=== PATIENT | female | born 1980 ===

== ENCOUNTER 2017-04-13 20:54 | Emergency (ER) | payer BC ==
[2017-04-13 20:54] VITALS: BMI 18.8
[2017-04-13 21:08] VITALS: RESP 20; O2SAT 99
[2017-04-13] MEDS ORDERED: Sodium Chloride 0.9% 1,000 ML IV ONE (22:00)
[2017-04-13 22:10] LABS: BASO % 0.1 % (0.0-2.0); EOS % 0.3 % (0.0-4.0); HEMATOCRIT 43.3 % (34.0-47.0); LYMPH # 0.5 K/uL (1.0-4.3); LYMPH % 4.1 % (20.0-40.0); MEAN CORPUSCULAR HGB CONC 32.6 g/dL (33.0-37.0); MEAN PLATELET VOLUME 10.4 fL (7.2-11.7); MONO # 0.9 K/uL (0.0-0.8); MONO % 7.1 % (0.0-10.0); PLATELET COUNT 210 K/uL (130-400); RED CELL DISTRIBUTION WIDTH 13.4 % (11.5-14.5); WHITE BLOOD COUNT 12.3 K/uL (4.8-10.8)
[2017-04-13 22:19] LABS: CHLORIDE 101 mmol/L (98-107); POTASSIUM 5.2 mmol/L (3.6-5.2); SODIUM 134 mmol/L (132-148)
[2017-04-13 22:22] LABS: ALB/GLOB RATIO 1.1 (1.0-2.1); ALKALINE PHOSPHATASE 31 U/L (38-126); ALT/SGPT 15 U/L (9-52); AST/SGOT 27 U/L (14-36); BLOOD UREA NITROGEN 22 mg/dL (7-17); CALCIUM 7.9 mg/dl (8.6-10.4); CARBON DIOXIDE 22 mmol/L (22-30); GFR AFRICAN-AMERICAN > 60; GLUCOSE,RANDOM 87 mg/dL (65-105); TOTAL PROTEIN 9.1 g/dL (6.3-8.3)
[2017-04-13 22:54] LABS: NEUTROPHIL 83 % (50-75); TOTAL CELLS COUNTED 100
[2017-04-13 23:37] VITALS: BP 110/72; PULSE 82; TEMP 98.1
--- NOTE | 2017-04-14 01:42 | C.PDOC ---
History Of Present Illness 36 year old female who presents to the ER with a complaint of multiple episodes of vomiting after eating [place] food tonight. Patient reports her son is getting over a viral gastritis. Denies fever, hematuria, or dysuria. Chief Complaint (Nursing): Abdominal Pain History Per: Patient History/Exam Limitations: no limitations Onset/Duration Of Symptoms: Hrs Current Symptoms Are (Timing): Still Present Context: Food Quality Of Discomfort: Unable To Describe Associated Symptoms: Vomiting. denies: Fever, Urinary Symptoms Exacerbating Factors: None Alleviating Factors: None Last Bowel Movement: Today Recent travel outside of the [place]: No Past Medical History Reviewed: Historical Data, Nursing Documentation, Vital Signs Vital Signs: Last Vital Signs Temp 98.1 F 04/13/17 23:36 Pulse 82 04/13/17 23:36 Resp 20 04/13/17 23:36 BP 110/72 04/13/17 23:36 Pulse Ox 99 04/14/17 01:46 - Medical History PMH: Kidney Stones Surgical History: No Surg Hx - [facility] Procedures INJECT/INFUSE NEC (01/01/07) Family History: States: Unknown Family Hx - Social History Hx Alcohol Use: No Hx Substance Use: No - Immunization History Hx Tetanus Toxoid Vaccination: No Hx Influenza Vaccination: No Hx Pneumococcal Vaccination: No Review Of Systems Constitutional: Negative for: Fever Gastrointestinal: Positive for: Vomiting Genitourinary: Negative for: Dysuria, Hematuria Physical Exam - Physical Exam Appears: Non-toxic Skin: Normal Color, Warm, Dry Head: Atraumatic, Normacephalic Oral Mucosa: Dry (mildly) Throat: Normal, No Erythema Neck: Normal, Supple Chest: Symmetrical Cardiovascular: Rhythm Regular Respiratory: Normal Breath Sounds, No Rales, No Rhonchi, No Wheezing Gastrointestinal/Abdominal: Soft, No Tenderness Neurological/Psych: Oriented x3, Normal Speech, Normal Cognition ED Course And Treatment - Laboratory Results Result Diagrams: 04/13/17 22:04 04/13/17 22:04 O2 Sat by Pulse Oximetry: 99 (Room air) Pulse Ox Interpretation: Normal Progress Note: Blood work and POC urine preg test ordered. Pepcid, zofran, and IV fluids administered. Disposition - Disposition Disposition: HOME/ ROUTINE Disposition Time: 22:50 Condition: IMPROVED Additional Instructions: Thank you for letting us take care of you today. Your provider was Dr. Passafaro. You were treated for gastritis. The emergency medical care you received today was directed at your acute symptoms. If you were prescribed any medication, please fill it and take as directed. It may take several days for your symptoms to resolve. Return to the Emergency Department if your symptoms worsen, do not improve, or if you have any other problems. Please contact your doctor or call one of the physicians/clinics you have been referred to that are listed on the Patient Visit Information form that is included in your discharge packet. Bring any paperwork you were given at discharge with you along with any medications you are taking to your follow up visit. Our treatment cannot replace ongoing medical care by a primary care provider (PCP) outside of the emergency department. Thank you for allowing the [facility] team to be part of your care today. Follow up with doctor in 2-3 days for re-evaluation and further management. Prescriptions: Ranitidine HCl [Zantac] 150 mg PO BID #20 tablet Instructions: Gastritis (ED) Forms: Work Excuse - Clinical Impression Clinical Impression: Gastritis - Scribe Statement The provider has reviewed the documentation as recorded by the Scribbala Melgar All medical record entries made by the Maluibbala were at my direction and personally dictated by me. I have reviewed the chart and agree that the record accurately reflects my personal performance of the history, physical exam, medical decision making, and the department course for this patient. I have also personally directed, reviewed, and agree with the discharge instructions and disposition.
== END 2017-04-13 23:37 | disposition home or self-care (01) ==
LOC: C.ER 20:54
DX: K29.70 Gastritis, unspecified, without bleeding (principal)
CPT/HCPCS: 80053; 83690; 85025; 96361; 96374; 96375; 99284; J2405; J7040